=== PATIENT | male | born 1950 | race Caucasian/White ===

== ENCOUNTER 2020-06-21 06:13 | Outpatient (REF) | payer MEDICARE, SELFPAY ==
[2020-06-21 12:19] LABS: Estimated Average Glucose 143 mg/dL; Hemoglobin A1c % 6.6 %
[2020-06-21 12:27] LABS: Alanine Aminotransferase 27 U/L (0-40); Albumin Level 4.4 g/dL (3.5-5.0); Alkaline Phosphatase 92 U/L (39-117); Anion Gap 14 (12-20); Aspartate Amino Transferase 24 U/L (5-37); Bilirubin Total 0.9 mg/dL (0.0-1.0); Blood Urea Nitrogen 25 mg/dL (9-16); Calcium 10.2 mg/dL (8.4-10.2); Carbon Dioxide 28 mmol/L (22-29); Chloride 103 mmol/L (96-108); Cholesterol 215 mg/dL; Estimated Glomerular Filt Rate > 60; Glucose Fasting 138 mg/dL (60-99); HDL Cholesterol 50 mg/dL; LDL Cholesterol Calculated 149 mg/dl; Potassium 4.6 mmol/l (3.3-5.1); Sodium 140 mmol/L (135-145); Triglycerides 82 mg/dL
[2020-06-21 12:29] LABS: Prostate Specific Antigen Scr 0.56 ng/mL (<0.05-4.0)
== END 2020-06-21 06:14 | disposition home or self-care (01) ==
LOC: HO.HMGCLDS 06:13
PROVIDERS: PCP Physician Assistant; Visit Provider Physician Assistant
DX: Z12.5 Encounter for screening for malignant neoplasm of prostate (principal); I10 Essential (primary) hypertension; R73.09 Other abnormal glucose; E78.00 Pure hypercholesterolemia, unspecified
CPT/HCPCS: 80053; 80061; 83036; 84153

== ENCOUNTER 2020-12-14 08:17 | Outpatient (REF) | payer MEDICARE, SELFPAY ==
[2020-12-14 11:47] LABS: Estimated Average Glucose 148 mg/dL; Hemoglobin A1c % 6.8 %
[2020-12-14 11:59] LABS: Alanine Aminotransferase 27 U/L (0-40); Albumin Level 4.4 g/dL (3.5-5.0); Alkaline Phosphatase 89 U/L (39-117); Anion Gap 11 (12-20); Aspartate Amino Transferase 21 U/L (5-37); Blood Urea Nitrogen 21 mg/dL (9-16); Calcium 10.6 mg/dL (8.4-10.2); Carbon Dioxide 29 mmol/L (22-29); Chloride 103 mmol/L (96-108); Cholesterol 226 mg/dL; Estimated Glomerular Filt Rate > 60; Glucose Fasting 135 mg/dL (60-99); HDL Cholesterol 49 mg/dL; LDL Cholesterol Calculated 156 mg/dl; Potassium 4.4 mmol/L (3.3-5.1); Sodium 139 mmol/L (135-145); Total Protein 6.8 g/dL (6.5-8.0); Triglycerides 109 mg/dL
[2020-12-14 12:06] LABS: TSH reflex Free T4 1.13 uIU/mL (0.32-4.0)
[2020-12-14 12:20] LABS: Creatinine Urine 168.65 mg/dL; Microalbum/Creatinine Ratio Ur 10.6 ug/mg cr
== END 2020-12-14 08:18 | disposition home or self-care (01) ==
LOC: HO.HMGCLDS 08:17
PROVIDERS: PCP Physician Assistant; Visit Provider Physician Assistant
DX: I10 Essential (primary) hypertension (principal); E78.2 Mixed hyperlipidemia; E11.9 Type 2 diabetes mellitus without complications
CPT/HCPCS: 36415; 80053; 80061; 82043; 83036; 84443

== ENCOUNTER 2021-06-15 07:39 | Outpatient (REF) | payer MEDICARE, SELFPAY ==
[2021-06-15 11:25] LABS: Urine Cytology See Pathology rpt
[2021-06-15 11:33] LABS: Appearance Urine CLEAR; Color Urine YELLOW; Glucose Urine UA NEG (NEG); Leukocyte Esterase Urine NEG (NEG); Nitrite Urine NEG (NEG); Specific Gravity - Urine >= 1.030 (1.005-1.025); Urine Blood NEG (NEG); Urine Ketones NEG (NEG); Urine Protein NEG (NEG-TRACE)
[2021-06-15 11:43] LABS: Hematocrit 45.5 % (42.0-52.0); Mean Corpuscular Hemoglobin 31.4 pg (27.0-33.0); Mean Corpuscular Volume 95.2 fL (80.0-98.0); Mean Platelet Volume 9.8 fL (9.4-12.4); Platelet Count 202 X10*3/uL (160-400); Red Blood Count 4.78 X10*6/uL (4.60-5.80); Red Cell Distribution Width 12.4 % (11.0-16.0); White Blood Count 5.6 X10*3/uL (4.8-10.8)
[2021-06-15 12:20] LABS: Alanine Aminotransferase 32 U/L (0-40); Albumin Level 4.4 g/dL (3.5-5.0); Alkaline Phosphatase 104 U/L (39-117); Anion Gap 10 (12-20); Aspartate Amino Transferase 21 U/L (5-37); Bilirubin Total 1.1 mg/dL (0.0-1.0); Blood Urea Nitrogen 22 mg/dL (9-16); Calcium 10.6 mg/dL (8.4-10.2); Carbon Dioxide 29 mmol/L (22-29); Chloride 104 mmol/L (96-108); Cholesterol 141 mg/dL; Estimated Glomerular Filt Rate > 60; Glucose Fasting 176 mg/dL (60-99); HDL Cholesterol 43 mg/dL; LDL Cholesterol Calculated 83 mg/dl; Potassium 4.8 mmol/L (3.3-5.1); Sodium 138 mmol/L (135-145); Total Protein 6.8 g/dL (6.5-8.0); Triglycerides 79 mg/dL
[2021-06-15 12:28] LABS: Prostate Specific Antigen Scr 0.55 ng/mL (<0.05-4.0); TSH reflex Free T4 1.49 uIU/mL (0.32-4.0)
== END 2021-06-15 07:40 | disposition home or self-care (01) ==
LOC: HO.HMGCLDS 07:39
PROVIDERS: PCP Physician Assistant; Visit Provider Physician Assistant
DX: I10 Essential (primary) hypertension (principal); E78.2 Mixed hyperlipidemia; R36.1 Hematospermia; R30.0 Dysuria; Z12.5 Encounter for screening for malignant neoplasm of prostate
CPT/HCPCS: 36415; 80053; 80061; 81003; 84153; 84443; 85027; 88112

== ENCOUNTER 2021-12-14 08:30 | Outpatient (REF) | payer MEDICARE, SELFPAY ==
[2021-12-14 11:29] LABS: Hematocrit 43.5 % (42.0-52.0); Hemoglobin 14.6 g/dl (14.0-18.0); Mean Corpuscular HGB Conc 33.6 g/dl (31.0-36.0); Mean Corpuscular Hemoglobin 31.7 pg (27.0-33.0); Mean Corpuscular Volume 94.6 fL (80.0-98.0); Mean Platelet Volume 9.8 fL (9.4-12.4); Platelet Count 206 X10*3/uL (160-400); Red Cell Distribution Width 12.7 % (11.0-16.0); White Blood Count 5.7 X10*3/uL (4.8-10.8)
[2021-12-14 11:35] LABS: Estimated Average Glucose 174 mg/dL; Hemoglobin A1c % 7.7 %
[2021-12-14 11:36] LABS: Alanine Aminotransferase 25 U/L (0-40); Albumin Level 4.2 g/dL (3.5-5.0); Alkaline Phosphatase 103 U/L (39-117); Anion Gap 12 (12-20); Aspartate Amino Transferase 21 U/L (5-37); Blood Urea Nitrogen 19 mg/dL (9-16); Calcium 10.3 mg/dL (8.4-10.2); Carbon Dioxide 26 mmol/L (22-29); Chloride 106 mmol/L (96-108); Cholesterol 138 mg/dL; Estimated Glomerular Filt Rate > 60; Glucose Fasting 160 mg/dL (60-99); HDL Cholesterol 42 mg/dL; LDL Cholesterol Calculated 83 mg/dl; Sodium 140 mmol/L (135-145); Total Protein 6.9 g/dL (6.5-8.0); Triglycerides 68 mg/dL
[2021-12-14 11:45] LABS: Microalbum/Creatinine Ratio Ur 7.8 ug/mg cr
[2021-12-14 12:00] LABS: TSH reflex Free T4 1.55 uIU/mL (0.32-4.0)
== END 2021-12-14 08:31 | disposition home or self-care (01) ==
LOC: HO.HMGCLDS 08:30
PROVIDERS: PCP Physician Assistant; Visit Provider Physician Assistant
DX: I10 Essential (primary) hypertension (principal); E11.9 Type 2 diabetes mellitus without complications
CPT/HCPCS: 36415; 80053; 80061; 82043; 83036; 84443; 85027

== ENCOUNTER 2022-06-13 07:28 | Outpatient (REF) | payer MEDICARE, SELFPAY ==
[2022-06-13 12:03] LABS: Estimated Average Glucose 157 mg/dL; Hemoglobin A1c % 7.1 %
[2022-06-13 12:34] LABS: Creatinine Urine 99.75 mg/dL
[2022-06-13 12:45] LABS: Alanine Aminotransferase 28 U/L (0-40); Albumin Level 4.5 g/dL (3.5-5.0); Alkaline Phosphatase 101 U/L (39-117); Anion Gap 14 (12-20); Aspartate Amino Transferase 23 U/L (5-37); Bilirubin Total 1.1 mg/dL (0.0-1.0); Blood Urea Nitrogen 19 mg/dL (9-16); Calcium 10.8 mg/dL (8.4-10.2); Carbon Dioxide 29 mmol/L (22-29); Chloride 102 mmol/L (96-108); Cholesterol 167 mg/dL; Estimated Glomerular Filt Rate > 60; Glucose Fasting 145 mg/dL (60-99); HDL Cholesterol 57 mg/dL; LDL Cholesterol Calculated 98 mg/dl; Potassium 4.8 mmol/L (3.3-5.1); Sodium 140 mmol/L (135-145); Triglycerides 61 mg/dL
[2022-06-13 13:19] LABS: Prostate Specific Antigen Scr 0.54 ng/mL (<0.05-4.0); TSH reflex Free T4 1.96 uIU/mL (0.32-4.0)
== END 2022-06-13 07:29 | disposition home or self-care (01) ==
LOC: HO.CHCLDS 07:28
PROVIDERS: PCP Physician Assistant; Visit Provider Physician Assistant
DX: Z12.5 Encounter for screening for malignant neoplasm of prostate (principal); E11.9 Type 2 diabetes mellitus without complications; I10 Essential (primary) hypertension; E66.09 Other obesity due to excess calories; Z68.33 Body mass index [BMI] 33.0-33.9, adult
CPT/HCPCS: 36415; 80053; 80061; 82043; 83036; 84153; 84443

== ENCOUNTER 2022-06-21 09:26 | Outpatient (REF) | payer MEDICARE, SELFPAY ==
[2022-06-21 12:16] LABS: Vitamin D 25-OH Total 31.1 ng/mL (>30)
== END 2022-06-21 09:27 | disposition home or self-care (01) ==
LOC: HO.HMGCLDS 09:26
PROVIDERS: PCP Physician Assistant; Visit Provider Physician Assistant
DX: E83.52 Hypercalcemia (principal)
CPT/HCPCS: 36415; 82306

== ENCOUNTER 2022-12-21 07:40 | Outpatient (REF) | payer MEDICARE, SELFPAY ==
[2022-12-21 11:47] LABS: Hematocrit 43.6 % (42.0-52.0); Hemoglobin 14.3 g/dl (14.0-18.0); Mean Corpuscular HGB Conc 32.8 g/dl (31.0-36.0); Mean Corpuscular Hemoglobin 31.8 pg (27.0-33.0); Mean Corpuscular Volume 96.9 fL (80.0-98.0); Mean Platelet Volume 9.8 fL (9.4-12.4); Platelet Count 226 X10*3/uL (160-400); Red Cell Distribution Width 12.9 % (11.0-16.0); White Blood Count 4.9 X10*3/uL (4.8-10.8)
[2022-12-21 12:17] LABS: Alanine Aminotransferase 30 U/L (0-40); Albumin Level 4.3 g/dL (3.5-5.0); Alkaline Phosphatase 105 U/L (39-117); Anion Gap 10 (12-20); Aspartate Amino Transferase 22 U/L (5-37); Bilirubin Total 1.3 mg/dL (0.0-1.0); Blood Urea Nitrogen 18 mg/dL (9-16); Calcium 10.8 mg/dL (8.4-10.2); Carbon Dioxide 29 mmol/L (22-29); Chloride 105 mmol/L (96-108); Cholesterol 153 mg/dL; Estimated Glomerular Filt Rate > 60; Glucose Fasting 161 mg/dL (60-99); HDL Cholesterol 50 mg/dL; LDL Cholesterol Calculated 88 mg/dl; Potassium 4.9 mmol/L (3.3-5.1); Sodium 139 mmol/L (135-145); TSH reflex Free T4 1.26 uIU/mL (0.32-4.0); Total Protein 6.6 g/dL (6.5-8.0); Triglycerides 76 mg/dL
[2022-12-21 12:20] LABS: Estimated Average Glucose 160 mg/dL; Hemoglobin A1c % 7.2 %
[2022-12-22 15:39] LABS: PTHI 48 pg/mL (16-77)
== END 2022-12-21 07:41 | disposition home or self-care (01) ==
LOC: HO.HMGCLDS 07:40
PROVIDERS: PCP Physician Assistant; Visit Provider Physician Assistant
DX: E66.09 Other obesity due to excess calories (principal); E78.2 Mixed hyperlipidemia; E11.65 Type 2 diabetes mellitus with hyperglycemia; E83.52 Hypercalcemia; Z68.33 Body mass index [BMI] 33.0-33.9, adult
CPT/HCPCS: 36415; 80053; 80061; 83036; 83970; 84443; 85027

== ENCOUNTER 2023-04-03 08:36 | Outpatient (AMB) | payer MEDICARE, SELFPAY ==
--- NOTE | 2023-04-03 08:42 | A.OFFPC_ITS ---
Vital Signs 04/03/23 08:43 Height 5 ft 7 in Weight 202 lb 4 oz BMI 31.7 BP 124/80 Blood Pressure Location Lt brachial Position Sitting Pulse 75 Pulse Source Pulse Oximeter Pulse Oximetry (%) 96 Oxygen Delivery Method Room Air Intake Visit Reasons: f/u DMII/ HLD / hypercalcemia Intake Note: Patient is here to follow up on DM,HLD and hypercalcemia. Longitudinal Float Operator Required: No Accompanied by: Self / Same As Patient Allergies No Known Allergies [No Known Allergies*] Allergy (Verified 04/03/23 08:49) Medication List - Last Reconciled 04/03/23 by Luke Perez PA-C aspirin 81 mg PO DAILY atorvastatin 20 mg PO DAILY lisinopril 2.5 mg PO DAILY metformin 500 mg PO BID multivitamin (Daily Multi-Vitamin tablet) 1 tab PO DAILY pioglitazone (Actos) 15 mg PO DAILY 90 days Tobacco use date assessed: 04/03/23 Fall risk assessment: No Falls in past year Last assessed Fall Risk: 04/03/23 Dental Screening Dental Screen Date: 04/03/23 Did you have a dental visit in the last 12 months?: Yes Did you have a dental problem in the last 6 months where you did not have access to dental care?: No Was dental information given to patient?: Patient has dentist HPI f/u DMII/ HLD / hypercalcemia HPI Details Patient is 72-year-old male here today fo visit.? Patient's past medical history significant for type 2 diabetes, hyperlipidemia, osteoarthritis of the knees, hypertension, obesity.. Concern-> has noted a skin lesion over his scalp over last several years. He reports no pain or itch to the skin lesion. Also reports likely having some spots of bright red blood in his stool. Of note did have colonoscopy in 2018 showing internal hemorrhoids and mild diverticulosis. He otherwise denies any constipation or rectal pain. .. Type 2 diabetes:? Has lost 8 lb since last office visit.? We have reduced his metformin dose to 500 b.i.d. due to GI side effects of higher dose.? I have added Actos 15 mg and patient has been working diligently on his diabetic diet. Today's A1c improved at 7.0 . Osteoarthritis left knee:? Patient continues to have mild amount of pain over hi s left knee, has gotten cortisone injection in left knee without much relief of his pain.? Has severe varus deformity and would like to have 2nd opinion with [place] [facility]. .. : Obesity BMI still remains above 30, have noted weight loss since last office visit. He continues to try to be more physically active an Adapta better eating habits to reduce his weight. .. Hypercalcemia :? Has been noted to have chronic hypercalcemia.? Parathyroid hormone levels normal. Has been referred to Nephrology for evaluation. Otherwise advised to stop his multivitamin.. Laboratory Tests 06/13/22 12/21/22 12/21/22 07:45 07:50 07:50 Fasting Glucose 161 H Hemoglobin A1c % 7.2 Calcium 10.8 H TSH 1.26 PTH Intact Calcium (PTH Intac t) Urine Microalbumin 8.0 12/21/22 07:50 Fasting Glucose Hemoglobin A1c % Calcium TSH PTH Intact 48 Calcium (PTH Intac t) 11.0 H Urine Microalbumin PFSH Surgical History History of cholecystectomy History of colonoscopy History of knee surgery Family History Father No problems noted. Mother Esophageal cancer Social History Housing: House Alcohol intake: never Patient Tobacco Use Status: Never used Tobacco Tobacco use type: Cigarette e-Cigarette/Vaping Use: Never Used Second Hand Smoke Exposure: No service: No Current occupational status: retired Cognitive needs: No Hearing needs: No Vision needs: No Questionnaire Thrive Questionnaire Date Thrive assessed: 12/22/22 KOKO-7 AMB Questionnaire KOKO-7 Date KOKO - 7 assessed: 12/22/22 Source: Developed by Drs. Williams Nagel, Abby Garcia, Osiel Ash and colleagues, with an educational yamil from [employer]. Review of Systems Const Denies headache(s) Eyes Denies loss of vision ENT Denies vertigo, Denies dizziness, Denies headache(s) and Denies sore throat Card Denies chest pain, Denies leg edema and Denies lightheadedness Resp Denies cough, Denies hemoptysis and Denies wheezing GI Denies abdominal pain, Denies melena, Denies constipation, Denies diarrhea and Denies vomiting Denies dysuria, Denies urinary frequency and Denies urinary urgency Musc Denies arthralgias, Denies joint swelling, Denies numbness and Denies tingling Neuro Denies Abnormal speech present, Denies behavioral changes, Denies vertigo, Denies dizziness, Denies headache(s), Denies loss of vision, Denies memory loss, Denies numbness and Denies tingling Psych Denies anxiety, Denies behavioral changes, Denies depression, Denies memory loss and Denies panic attacks Ron/Lymph Denies easy bleeding and Denies easy bruising Aller/Immun Denies wheezing Physical exam (Primary Care) Vital Signs: Last Vital Signs Pulse 75 04/03/23 08:43 BP 124/80 04/03/23 08:43 Pulse Ox 96 04/03/23 08:43 Oxygen Delivery Method Room Air 04/03/23 08:43 BMI result Body Mass Index 31.7 BMI Assessment/Plan discussion: High Tobacco/Smoking Status: Tobacco use Status Tobacco use date assessed 04/03/23 04/03/23 08:51 Patient Tobacco Use Status Never used Tobacco 04/03/23 08:44 Tobacco use type Cigarette 04/03/23 08:44 e-Cigarette/Vaping Use Never Used 04/03/23 08:44 Thrive Assessment: Date of Thrive Assessment Date Thrive assessed 12/22/22 04/03/23 08:44 Const General: healthy appearing, no acute distress, alert and awake Nutritional Appearance: well nourished Orientation/consciousness: oriented to person, oriented to place and oriented to time [facility] Head images: 1. CIRCULAR ROUGH TEXTURED RAISED LESION OVER RIGHT UPPER FOREHEAD. Ears: TM's normal bilaterally General nose exam: Normal nasal mucous membranes and turbinates present Eyes Conjunctivae: conjunctivae normal Sclerae: sclerae normal Pupils: Equal, round and reactive pupils present Neck Neck: Yes no lymphadenopathy and Yes no JVD Thyroid: Thyroid normal Carotids: no bruits Resp Effort & Inspection: normal respiratory effort and not tachypneic Auscultation: no crackles, no rales, no rhonchi and no wheezes Cardio Rate: regular rate Rhythm: regular rhythm Heart sounds: no murmurs and normal S1 and S2 GI Palpation (GI): Soft to palpation, nontender, no hepatomegaly and no splenomegaly Auscultation: normal bowel sounds Skin General skin exam: no rashes or lesions noted and dry skin Neuro General: oriented to person, oriented to place and oriented to time Cranial nerves: Yes Equal, round and reactive pupils present Speech: No Abnormal speech present Gait exam (Neuro): Normal gait present Motor exam (neuro): no tremor noted Extrem Right upper extremity: full ROM Left upper extremity: full ROM Right lower extremity: full ROM; no edema Left lower extremity: full ROM; no edema Psych Mental Status: mental status grossly normal Speech and movement: Normal speech and movement present Affect: normal affect Attitude: cooperative Thought process: Normal thought process present Results AMB Hemoglobin A1c AMB Hemoglobin A1c 7.0 % Last Edit by MARIE Parr on 04/03/23 08:57 Results Reviewed Results Reviewed: Laboratory Last Values Hgb A1c (Clinic) 7.0 % (4.0-6.0) H 04/03/23 08:51 Assessment and Plan Assessment & Plan (1) DMII (diabetes mellitus, type 2): Code(s): E11.9 - Type 2 diabetes mellitus without complications Qualifiers: Diabetes mellitus complication status: with hyperglycemia Diabetes mellitus care home insulin use: without care home use Qualified Code(s): E11.65 - Type 2 diabetes mellitus with hyperglycemia Plan: Patient's type 2 diabetes well controlled with current dose of anti- hyperglycemic medication. Goal A1c is to remain 0.0 below. (2) HTN (hypertension): Code(s): I10 - Essential (primary) hypertension Qualifiers: Hypertension type: essential hypertension Qualified Code(s): I10 - Essential (primary) hypertension Plan: Patient's blood pressure acceptable today in office. Will continue his current dose of lisinopril with goal blood pressure to remain below 140/90 (3) HLD (hyperlipidemia): Code(s): E78.5 - Hyperlipidemia, unspecified Qualifiers: Hyperlipidemia type: mixed hyperlipidemia Qualified Code(s): E78.2 - Mixed hyperlipidemia Plan: Patient's most recent fasting lipid panel showing appropriate total cholesterol and LDL. Continues on statin therapy without any side effect. Goal LDL to remain below 100 (4) Obese: Code(s): E66.9 - Obesity, unspecified Qualifiers: Body mass index: BMI 31.0-31.9 Obesity classification: adult class 1 (BMI 30 - 34.9) Obesity type: due to excess calories Serious obesity comorbidity presence: without serious comorbidity Qualified Code(s): E66.09 - Other obesity due to excess calories; Z68.31 - Body mass index [BMI] 31.0-31.9, adult Plan: Patient does understand his BMI is over 30 and will continue working on lif estyle modifications to reduce his weight. (5) Hypercalcemia: Code(s): E83.52 - Hypercalcemia Plan: Continues to have mild hypercalcemia. Has been referred to Nephrology for evaluation. Parathyroid normal. He otherwise is asymptomatic without prior history of abdominal pains or nephrolithiasis. (6) Actinic keratosis of scalp: Code(s): L57.0 - Actinic keratosis Plan: Will supply patient with topical treatment for presumed actinic keratosis, if treatment fails will consider dermatology evaluation on biopsy. Orders: Orders Lipid Panel Today E78.2 - Mixed hyperlipidemia Comprehensive [place]. Panel Fast Today E11.65 - Type 2 diabetes mellitus with hyperglycemia Prostate Specific Antigen Scr Today E11.65 - Type 2 diabetes mellitus with hyperglycemia, Z12.5 - Encounter for screening for malignant neoplasm of prostate Microalbumin, Random (w Creat) Today I10 - Essential (primary) hypertension Complete Blood Count no Diff Today E83.52 - Hypercalcemia AMB Hemoglobin A1c Today E11.9 - Type 2 diabetes mellitus without complications Medications: New imiquimod 5% 1 appl topical 2XW 16 weeks 24 ea 0RF L57.0 - Actinic keratosis Changed From metformin 500 mg PO BID 180 tabs 1RF E11.65 - Type 2 diabetes mellitus with hyperglycemia To metformin 500 mg PO BID 90 days 180 tabs 2RF E11.65 - Type 2 diabetes mellitus with hyperglycemia Refilled lisinopril 2.5 mg PO DAILY 90 tabs 2RF I10 - Essential (primary) hypertension Coding Level of Care Code Est Pt Level 4 (77201) Diagnoses DMII (diabetes mellitus, type 2) E11.65 Diabetes mellitus complication status: with hyperglycemia Diabetes mellitus terminal operations supervisor insulin use: without care home use HTN (hypertension) I10 Hypertension type: essential hypertension HLD (hyperlipidemia) E78.2 Hyperlipidemia type: mixed hyperlipidemia Obese E66.09; Z68.31 Body mass index: BMI 31.0-31.9 Obesity classification: adult class 1 (BMI 30 - 34.9) Obesity type: due to excess calories Serious obesity comorbidity presence: without serious comorbidity Hypercalcemia E83.52 Actinic keratosis of scalp L57.0
[2023-04-03 08:43] VITALS: BP 124/80; PULSE 75; O2SAT 96; BMI 31.7
== END 2023-04-03 09:13 | disposition home or self-care (01) ==
PROVIDERS: Visit Provider Physician Assistant
DX: E11.65 Type 2 diabetes mellitus with hyperglycemia (principal); I10 Essential (primary) hypertension; E66.09 Other obesity due to excess calories; Z68.31 Body mass index [BMI] 31.0-31.9, adult; E83.52 Hypercalcemia; E78.2 Mixed hyperlipidemia; L57.0 Actinic keratosis
CPT/HCPCS: 83036; 99214

== ENCOUNTER 2023-09-27 08:35 | Outpatient (REF) | payer MEDICARE, SELFPAY ==
[2023-09-27 11:47] LABS: Hematocrit 45.3 % (42.0-52.0); Hemoglobin 14.9 g/dl (14.0-18.0); Mean Corpuscular HGB Conc 32.9 g/dl (31.0-36.0); Mean Corpuscular Hemoglobin 31.4 pg (27.0-33.0); Mean Corpuscular Volume 95.6 fL (80.0-98.0); Mean Platelet Volume 9.8 fL (9.4-12.4); Platelet Count 204 X10*3/uL (160-400); Red Blood Count 4.74 X10*6/uL (4.60-5.80); Red Cell Distribution Width 13.3 % (11.0-16.0)
[2023-09-27 12:02] LABS: Alanine Aminotransferase 23 U/L (0-40); Albumin Level 4.4 g/dL (3.5-5.0); Alkaline Phosphatase 96 U/L (39-117); Anion Gap 12 (12-20); Aspartate Amino Transferase 20 U/L (5-37); Bilirubin Total 0.5 mg/dL (0.0-1.0); Blood Urea Nitrogen 21 mg/dL (9-16); Calcium 10.8 mg/dL (8.4-10.2); Carbon Dioxide 28 mmol/L (22-29); Chloride 108 mmol/L (96-108); Cholesterol 153 mg/dL (<200); Estimated Glomerular Filt Rate > 60; Glucose Fasting 147 mg/dL (60-99); HDL Cholesterol 52 mg/dL (>40); LDL Cholesterol Calculated 88 mg/dL (<100); Sodium 143 mmol/L (135-145); Total Protein 7.2 g/dL (6.5-8.0); Triglycerides 67 mg/dL (<150)
[2023-09-27 12:18] LABS: Creatinine Urine 175.28 mg/dL; Microalbum/Creatinine Ratio Ur 14.8 ug/mg cr (<30)
[2023-09-27 12:19] LABS: Prostate Specific Antigen Scr 0.84 ng/mL (<0.05-4.0)
== END 2023-09-27 08:36 | disposition home or self-care (01) ==
LOC: HO.HMGCLDS 08:35
PROVIDERS: PCP Physician Assistant; Visit Provider Physician Assistant
DX: Z12.5 Encounter for screening for malignant neoplasm of prostate (principal); E11.65 Type 2 diabetes mellitus with hyperglycemia; I10 Essential (primary) hypertension; E83.52 Hypercalcemia; E78.2 Mixed hyperlipidemia
CPT/HCPCS: 36415; 80053; 80061; 82043; 82570; 84153; 85027

== ENCOUNTER 2023-10-04 08:10 | Outpatient (AMB) | payer MEDICARE, SELFPAY ==
[2023-10-04 08:33] VITALS: BP 120/78; PULSE 65; O2SAT 99; BMI 33.7
--- NOTE | 2023-10-04 08:33 | A.OFFPC_ITS ---
Vital Signs 10/04/23 08:33 Height 5 ft 7 in Weight 215 lb BMI 33.7 BP 120/78 Blood Pressure Location Lt brachial Position Sitting Pulse 65 Pulse Source Pulse Oximeter Pulse Oximetry (%) 99 Oxygen Delivery Method Room Air Intake Visit Reasons: 6mth f/u Waterproofing Supervisor Required: No Coach Wirer: Not Required per policy Accompanied by: Self / Same As Patient Allergies No Known Allergies [No Known Allergies*] Allergy (Verified 10/04/23 08:47) Medication List - Last Reconciled 10/04/23 by Luke Perez PA-C atorvastatin 20 mg PO DAILY lisinopril 2.5 mg PO DAILY metformin 500 mg PO BID 90 days pioglitazone (Actos) 15 mg PO DAILY 90 days Tobacco use date assessed: 10/04/23 Fall risk assessment: No Falls in past year Last assessed Fall Risk: 10/04/23 Dental Screening Dental Screen Date: 10/04/23 Did you have a dental visit in the last 12 months?: Yes Did you have a dental problem in the last 6 months where you did not have access to dental care?: No Was dental information given to patient?: Patient has dentist HPI 6mth f/u HPI Details Patient is 73-year-old male here today for visit.? Patient's past medical history significant for type 2 diabetes, hyperlipidemia, osteoarthritis of the knees, hypertension, obesity.. .. Type 2 diabetes:??Patient continues on metformin 500 b.i.d. and Actos 15 mg. A1c elevated at 7.6 from 7.0. He does report dietary indiscretion and weight gain since last office visit. . Osteoarthritis left knee:? Patient continues to have mild amount of pain over his left knee, has gotten cortisone injection in left knee without much relief of his pain.? Has severe varus deformity and is interested in seeing orthopedic surgeon again .. : Obesity BMI still remains above 30, have noted weight gain since last office visit. He continues to try to be more physically active an Adapta better eating habits to reduce his weight. .. Hyperparathyroidism: Has seen sports centre manager whom will follow. Has gotten bone density and upper abdominal scan without any evidence of nephrolithiasis. Will be seeing endocrine surgeon for possible parathyroidectomy [facility] Surgical History History of colonoscopy History of knee surgery History of cholecystectomy Family History Father No problems noted. Mother Esophageal cancer Social History Housing: House Alcohol intake: never Patient Tobacco Use Status: Never used Tobacco Tobacco use type: Cigarette e-Cigarette/Vaping Use: Never Used Second Hand Smoke Exposure: No service: No Current occupational status: retired Cognitive needs: No Hearing needs: No Vision needs: Yes Questionnaire PHQ-9 Over the last 2 weeks, how often have you been bothered by any of the following problems? 1. Little interest or pleasure in doing things: not at all 2. Feeling down, depressed, or hopeless: not at all 3. Trouble falling or staying asleep, or sleeping too much: not at all 4. Feeling tired or having little energy: not at all 5. Poor appetite or overeating: not at all 6. Feeling bad about yourself - or that you are a failure or have let yourself or your family down: not at all 7. Trouble concentrating on things, such as reading the newspaper or watching television: not at all 8. Moving or speaking so slowly that other people could have noticed. Or the opposite - being so fidgety or restless that you have been moving around a lot more than usual: not at all 9. Thoughts that you would be better off or of hurting yourself in some way: not at all Total score: 0 Depression Screening Interpretation: Negative Depression Screening Done: Yes 67425 - PHQ-9 Billing: Yes Source: Developed by Drs. Williams Nagel, Abby Garcia, Osiel Ash and colleagues, with an educational yamil from [employer]. Thrive Questionnaire Date Thrive assessed: 10/04/23 I am a: Patient What is your living situation today?: I have a steady place to live Within the past 12 months, did the food you bought not last and you didn't have the money to get more?: Never true Within the past 12 months, did you worry whether your food would run out before you got money to buy more?: Never true Do you have trouble paying for medicines?: No Do you have trouble getting transportation to medical appointments?: No Do you have trouble paying your heating and electricity bill?: No Do you have trouble taking care of your child, family member or friend?: No Do you have trouble with day-to-day activities such as bathing, preparing meals, shopping, managing finances, etc.?: No Are you currently unemployed and looking for a job?: No Are you interested in more education?: No Please select the resources that you would like help with: None THRIVE Score: 0 AUDIT C Alcohol Use Questionnaire (AUDIT-C) 1. How often do you have a drink containing alcohol?: Never Total Score: 0 Score Reviewed/Action Taken: No KOKO-7 AMB Questionnaire KOKO-7 Date KOKO - 7 assessed: 10/04/23 Feeling nervous, anxious, or on edge: 0 = Not at all Not being able to stop or control worryin = Not at all Worrying too much about different things: 0 = Not at all Trouble relaxin = Not at all Being so restless that it is hard to sit still: 0 = Not at all Becoming easily annoyed or irritable: 0 = Not at all Feeling afraid as if something awful might happen: 0 = Not at all Total KOKO-7 score (0-4 normal; 5-9 mild; 10-14 moderate; 15-21 severe): 0 Source: Developed by Drs. Williams Nagel, Abby Garcia, Osiel Ash and colleagues, with an educational yamil from [employer]. Review of Systems Const Denies headache(s) Eyes Denies loss of vision ENT Denies vertigo, Denies dizziness, Denies headache(s) and Denies sore throat Card Denies chest pain, Denies leg edema and Denies lightheadedness Resp Denies cough, Denies hemoptysis and Denies wheezing GI Denies abdominal pain, Denies melena, Denies constipation, Denies diarrhea and Denies vomiting Denies dysuria, Denies urinary frequency and Denies urinary urgency Musc Denies arthralgias, Denies joint swelling, Denies numbness and Denies tingling Neuro Denies Abnormal speech present, Denies behavioral changes, Denies vertigo, Denies dizziness, Denies headache(s), Denies loss of vision, Denies memory loss, Denies numbness and Denies tingling Psych Denies anxiety, Denies behavioral changes, Denies depression, Denies memory loss and Denies panic attacks Ron/Lymph Denies easy bleeding and Denies easy bruising Aller/Immun Denies wheezing Physical exam (Primary Care) Vital Signs: Last Vital Signs Pulse 65 10/04/23 08:33 BP 120/78 10/04/23 08:33 Pulse Ox 99 10/04/23 08:33 Oxygen Delivery Method Room Air 10/04/23 08:33 BMI result Body Mass Index 33.7 Tobacco/Smoking Status: Tobacco use Status Tobacco use date assessed 10/04/23 10/04/23 08:35 Patient Tobacco Use Status Never used Tobacco 10/04/23 08:35 Tobacco use type Cigarette 10/04/23 08:35 e-Cigarette/Vaping Use Never Used 10/04/23 08:35 PHQ-9: PHQ-9 Score PHQ-9: Total score 0 10/04/23 08:46 Depression Screening Interpretation: Negative Thrive Assessment: Date of Thrive Assessment Date Thrive assessed 10/04/23 10/04/23 08:35 Const General: healthy appearing, no acute distress, alert and awake Nutritional Appearance: well nourished Orientation/consciousness: oriented to person, oriented to place and oriented to time HENMT Ears: TM's normal bilaterally General nose exam: Normal nasal mucous membranes and turbinates present Eyes Conjunctivae: conjunctivae normal Sclerae: sclerae normal Pupils: Equal, round and reactive pupils present Neck Neck: Yes no lymphadenopathy and Yes no JVD Thyroid: Thyroid normal Carotids: no bruits Resp Effort & Inspection: normal respiratory effort and not tachypneic Auscultation: no crackles, no rales, no rhonchi and no wheezes Cardio Rate: regular rate Rhythm: regular rhythm Heart sounds: no murmurs and normal S1 and S2 GI Palpation (GI): Soft to palpation, nontender, no hepatomegaly and no splenomegaly Auscultation: normal bowel sounds Skin General skin exam: no rashes or lesions noted and dry skin Neuro General: oriented to person, oriented to place and oriented to time Cranial nerves: Yes Equal, round and reactive pupils present Speech: No Abnormal speech present Gait exam (Neuro): Normal gait present Motor exam (neuro): no tremor noted Extrem Right upper extremity: full ROM Left upper extremity: full ROM Right lower extremity: full ROM; no edema Left lower extremity: full ROM; no edema Psych Mental Status: mental status grossly normal Speech and movement: Normal speech and movement present Affect: normal affect Attitude: cooperative Thought process: Normal thought process present Results AMB Hemoglobin A1c AMB Hemoglobin A1c 7.6 % Last Edit by SEA Taveras on 10/04/23 08:47 Results Reviewed Results Reviewed: Laboratory Last Values Hgb A1c (Clinic) 7.6 % (4.0-6.0) H 10/04/23 08:35 Assessment and Plan Assessment & Plan (1) DMII (diabetes mellitus, type 2): Code(s): E11.9 - Type 2 diabetes mellitus without complications Qualifiers: Diabetes mellitus complication status: with hyperglycemia Diabetes mellitus half-way insulin use: without half-way use Qualified Code(s): E11.65 - Type 2 diabetes mellitus with hyperglycemia Plan: Patient's type 2 diabetes suboptimally controlled with A1c today is 7.6. Continues on metformin 500 b.i.d.. Was unable to tolerate high doses of metformin due to GI side effects. Continues on pioglitazone 15 mg daily. Will higher dose though would like to work on dietary and lifestyle modifications. (2) Hyperparathyroidism: Code(s): E21.3 - Hyperparathyroidism, unspecified Plan: Was found to have hyperparathyroidism. Calcium has been slightly elevated for many years now. He otherwise is asymptomatic without any GI issues, nephrolithi asis. Will be speaking with a endocrine surgeon about a parathyroidectomy (3) HTN (hypertension): Code(s): I10 - Essential (primary) hypertension Qualifiers: Hypertension type: essential hypertension Qualified Code(s): I10 - Essential (primary) hypertension Plan: Patient's blood pressure acceptable today in office. Will continue his current dose of lisinopril with goal blood pressure to remain below 140/90 (4) HLD (hyperlipidemia): Code(s): E78.5 - Hyperlipidemia, unspecified Qualifiers: Hyperlipidemia type: mixed hyperlipidemia Qualified Code(s): E78.2 - Mixed hyperlipidemia Plan: Patient's most recent fasting lipid panel showing appropriate total cholesterol and LDL. Continues on statin therapy without any side effect. Goal LDL to remain below 100 (5) Obese: Code(s): E66.9 - Obesity, unspecified Qualifiers: Obesity type: due to excess calories Obesity classification: adult class 1 (BMI 30 - 34.9) Serious obesity comorbidity presence: without serious comorbidity Body mass index: BMI 31.0-31.9 Qualified Code(s): E66.09 - Other obesity due to excess calories; Z68.31 - Body mass index [BMI] 31.0-31.9, adult Plan: Unfortunately gained a few lb since last office visit. Patient does understand his BMI is over 30 and will continue working on lifestyle modifications to reduce his weight. (6) Osteoarthritis of left knee: Code(s): M17.12 - Unilateral primary osteoarthritis, left knee Qualifiers: Osteoarthritis type: primary Qualified Code(s): M17.12 - Unilateral eliud dave osteoarthritis, left knee Plan: Has severe left knee osteoarthritis. Has gotten cortisone injections though have not been effective. Would like to speak with orthopedic surgeon again about other options. He is apprehensive on total replacement Orders: Orders AMB Hemoglobin A1c Today E11.9 - Type 2 diabetes mellitus without complications Comprehensive [place]. Panel Fast 6 Months E11.65 - Type 2 diabetes mellitus with hyperglycemia Hemoglobin A1c 6 Months E11.65 - Type 2 diabetes mellitus with hyperglycemia Lipid Panel 6 Months E78.2 - Mixed hyperlipidemia Coding Level of Care Code Est Pt Level 4 (32658) Diagnoses Type 2 diabetes mellitus with hyperglycemia, without long-term current use of insulin E11.65 Diabetes mellitus complication status: with hyperglycemia Diabetes mellitus long term acute care registered nurse insulin use: without long term acute care registered nurse use Hyperparathyroidism E21.3 Essential hypertension I10 Hypertension type: essential hypertension Mixed hyperlipidemia E78.2 Hyperlipidemia type: mixed hyperlipidemia Class 1 obesity due to excess calories without serious comorbidity with body mass index (BMI) of 31.0 to 31.9 in adult E66.09; Z68.31 Obesity type: due to excess calories Obesity classification: adult class 1 (BMI 30 - 34.9) Serious obesity comorbidity presence: without serious comorbidity Body mass index: BMI 31.0-31.9 Primary osteoarthritis of left knee M17.12 Osteoarthritis type: primary
== END 2023-10-04 09:08 | disposition home or self-care (01) ==
PROVIDERS: PCP Physician Assistant; Visit Provider Physician Assistant
DX: E11.65 Type 2 diabetes mellitus with hyperglycemia (principal); E21.3 Hyperparathyroidism, unspecified; I10 Essential (primary) hypertension; E78.2 Mixed hyperlipidemia; E66.09 Other obesity due to excess calories; Z68.31 Body mass index [BMI] 31.0-31.9, adult; M17.12 Unilateral primary osteoarthritis, left knee; E11.9 Type 2 diabetes mellitus without complications
CPT/HCPCS: 83036; 99214

== ENCOUNTER 2024-03-31 07:23 | Outpatient (REF) | payer MEDICARE, SELFPAY ==
[2024-03-31 11:20] LABS: Alanine Aminotransferase 19 U/L (0-40); Albumin Level 4.2 g/dL (3.5-5.0); Alkaline Phosphatase 88 U/L (39-117); Anion Gap 12 (12-20); Aspartate Amino Transferase 17 U/L (5-37); Bilirubin Total 0.9 mg/dL (0.0-1.0); Blood Urea Nitrogen 19 mg/dL (9-16); Calcium 10.9 mg/dL (8.4-10.2); Carbon Dioxide 27 mmol/L (22-29); Chloride 106 mmol/L (96-108); Cholesterol 145 mg/dL (<200); Estimated Glomerular Filt Rate > 60; Glucose Fasting 147 mg/dL (60-99); HDL Cholesterol 53 mg/dL (>40); LDL Cholesterol Calculated 76 mg/dL (<100); Potassium 4.9 mmol/L (3.3-5.1); Sodium 140 mmol/L (135-145); Total Protein 6.9 g/dL (6.5-8.0); Triglycerides 83 mg/dL (<150)
[2024-03-31 11:21] LABS: Estimated Average Glucose 148 mg/dL; Hemoglobin A1c % 6.8 % (<6.0)
[2024-03-31 11:22] LABS: Anion Gap 9 (12-20); Blood Urea Nitrogen 19 mg/dL (9-16); Calcium 11.1 mg/dL (8.4-10.2); Carbon Dioxide 29 mmol/L (22-29); Chloride 106 mmol/L (96-108); Estimated Glomerular Filt Rate > 60; Potassium 4.7 mmol/L (3.3-5.1); Sodium 139 mmol/L (135-145)
[2024-03-31 11:24] LABS: Vitamin D 25-OH Total 38.2 ng/mL (>30)
[2024-03-31 11:25] LABS: Parathyroid Hormone Intact 70.8 pg/mL (8.7-77.1)
== END 2024-03-31 07:24 | disposition home or self-care (01) ==
LOC: HO.HMGCLDS 07:23
PROVIDERS: PCP Physician Assistant; Referring Provider Internal Medicine Endocrinology, Diabetes & Metabolism; Visit Provider Physician Assistant
DX: E11.65 Type 2 diabetes mellitus with hyperglycemia (principal); E78.2 Mixed hyperlipidemia; E83.52 Hypercalcemia
CPT/HCPCS: 36415; 80051; 80053; 80061; 82306; 82310; 82565; 83036; 83970; 84520

== ENCOUNTER 2024-04-07 09:21 | Outpatient (AMB) | payer MEDICARE, SELFPAY ==
--- NOTE | 2024-04-07 09:26 | A.OFFPC_ITS ---
Intake Visit Reasons: ANNUAL WELLNESS Allergies No Known Allergies [No Known Allergies*] Allergy (Verified 10/04/23 08:47) Tobacco use date assessed: 10/04/23 Dental Screening Dental Screen Date: 10/04/23 [facility] Surgical History History of colonoscopy History of knee surgery History of cholecystectomy Family History Father No problems noted. Mother Esophageal cancer Social History Housing: House Alcohol intake: never Patient Tobacco Use Status: Never used Tobacco Tobacco use type: Cigarette e-Cigarette/Vaping Use: Never Used Second Hand Smoke Exposure: No service: No Current occupational status: retired Cognitive needs: No Hearing needs: No Vision needs: Yes Questionnaire Thrive Questionnaire Date Thrive assessed: 10/04/23 KOKO-7 AMB Questionnaire KOKO-7 Date KOKO - 7 assessed: 10/04/23 Source: Developed by Drs. Williams Nagel, Abby Garcia, Osiel Ash and colleagues, with an educational yamil from [employer]. Physical exam (Primary Care) Tobacco/Smoking Status: Tobacco use Status Tobacco use date assessed 10/04/23 10/04/23 08:35 Patient Tobacco Use Status Never used Tobacco 10/04/23 08:35 Tobacco use type Cigarette 10/04/23 08:35 e-Cigarette/Vaping Use Never Used 10/04/23 08:35 Thrive Assessment: Date of Thrive Assessment Date Thrive assessed 10/04/23 10/04/23 08:35 Coding
[2024-04-07 09:32] VITALS: BP 136/86; PULSE 68; O2SAT 98; BMI 32.3
--- NOTE | 2024-04-07 09:35 | AM.OFFVISMDC ---
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 Patient's past medical history significant for type 2 diabetes, hyperlipidemia, osteoarthritis of the knees, hypertension, obesity.. Today we discussed [place] [facility] of care and patient does have [facility] on file We also did discuss his comprehensive care plan and will be scanned into documents Vaccine: Up-to-date with COVID vaccine, pneumonia vaccine, shingles vaccine Colorectal cancer screening- done in 2018 repeat 10 years up-to-date with colonoscopy Laboratory Tests 12/21/22 09/27/23 10/04/23 07:50 08:38 08:35 RBC 4.74 Hgb 14.9 Creatinine 0.83 Fasting Glucose 161 H 147 H Hgb A1c (Clinic) 7.6 H Hemoglobin A1c % Calcium 10.8 H Cholesterol 153 LDL Cholesterol, C alc 88 PSA Screen 0.84 25-OH Vitamin D To luz Urine Microalbumin 26.0 03/31/24 07:34 RBC Hgb Creatinine 0.90 Fasting Glucose Hgb A1c (Clinic) Hemoglobin A1c % 6.8 H Calcium Cholesterol 145 LDL Cholesterol, C alc PSA Screen 25-OH Vitamin D To luz 38.2 Urine Microalbumin HPI Comments History of Present Illness Details reviewed past medical history- yes reviewed surgical / hospitalization history- yes reviewed current medications- yes reviewed family history- yes home safety throw rugs? grab bars? raised toilet seat? working smoke detectors? activities of daily living difficulty bathing or showering? difficulty dressing? difficulty using the toilet? difficulty getting in and out of bed? difficulty walking? receives help from other person's with any of the above tasks? instrumental activities of daily living uses telephone - gets to place out of walking distance- go shopping for groceries- repairs own meals- does own minor home maintenance- does own laundry- does own housework- manages own money- currently takes medication- end of life planning discussed advanced directives- yes advanced directives on file? discussed wishes expressed in advanced directives. fall risk have you had any falls with injuries in the past year? have you had 2 or more falls in the past year? fall risk assessment: [facility] Surgical History History of colonoscopy History of knee surgery History of cholecystectomy Family History Father No problems noted. Mother Esophageal cancer Social History Housing: House Alcohol intake: never Patient Tobacco Use Status: Never used Tobacco Tobacco use type: Cigarette e-Cigarette/Vaping Use: Never Used Second Hand Smoke Exposure: No service: No Current occupational status: retired Cognitive needs: No Hearing needs: No Vision needs: Yes Questionnaire Medicare Wellness Checkup [age] What gender do you identify with?: male During the past 4 weeks, how much have you been bothered by emotional problems such as feeling anxious, depressed, irritable, sad or downhearted, and blue?: not at all During the past 4 weeks, has your physical & emotional health limited your social activities with family, friends, neighbors, or groups?: not at all During the past 4 weeks, how much bodily pain have you generally had?: very mild pain During the past 4 weeks, was someone available to help you if you needed & wanted help?: yes, as much as I wanted During the past 4 weeks, what was the hardest physical activity you could do for at least 2 minutes?: heavy Can you get to places out of walking distance without help? (For eg., can you travel alone on buses, taxis or drive your car?): Yes Can you go shopping for groceries or clothes without someone's help?: Yes Can you prepare your own meals?: Yes Can you do your housework without help?: Yes Because of any health problems, do you need the help of another person with your personal care needs such as eating, bathing, dressing or getting around the house?: No Can you handle your own money without help?: Yes During the past 4 weeks, how would you rate your health in general?: very good During the past 4 weeks how have things been going for you?: pretty well Are you having difficulties driving your car?: no Do you always fasten your seat belt when you are in a car?: yes, usually During past 4 weeks, have you been bothered by the following: never: Falling or dizzy when standing up, Sexual problems?, Trouble eating well?, Teeth or denture problems?, Problems using the telephone? and Tiredness or fatigue? Have you fallen 2 or more times in the past year?: No Are you afraid of falling?: No Are you a smoker?: no During the past 4 weeks, how many drinks of wine, beer, or other alcoholic beverages did you have?: no alcohol at all Do you exercise for about 20 minutes 3 or more times a week?: yes, all the time Have you been given information to help with the following?: yes: Hazards in your house that might hurt you? and yes: Keeping track of your medications? How often do you have trouble taking medicines the way you have been told to take them?: I always take medicine as prescribed What is your race?: White Mini Mental State Exam (MMSE) Orientation What is the (year) (season) (date) (day) (month)?: season Where are we (state) (county) (town or city) (hospital) (floor)?: town or city Attention & Calculation (CHOOSE ONE) Ask pt to begin with 100 & count backward by 7. Stop after 5 repeats. If pt cannot ask them to spell the word WORLD backward.: 65 Spell WORLD backwards (DLROW): 5 letters Score Score: 8 Activity of Daily Living Bathing - sponge bath, tub bath or shower: receives no assistance (gets in/out by self, if usual bathing means Dressing - getting clothes from closets & drawers, including inner/outer garments & fasteners.: gets clothes & gets completely dressed without help Toileting - going to the 'toilet room' for urine/bowel elimination & cleaning self/arranging clothes: goes to toilet room, cleans self, arranges clothes without help Transfer: moves in & out of bed and chair without help (may use support object) Continence: controls urination/bowel movements completely by self Feeding: feeds self without help Total Score: 0 Information obtained from: patient Using telephone: independent Traveling: independent Shopping: independent Preparing meals: independent Housework: independent Taking medicine: independent Managing money: independent PHQ-9 Over the last 2 weeks, how often have you been bothered by any of the following problems? 1. Little interest or pleasure in doing things: not at all 2. Feeling down, depressed, or hopeless: not at all 3. Trouble falling or staying asleep, or sleeping too much: not at all 4. Feeling tired or having little energy: not at all 5. Poor appetite or overeating: not at all 6. Feeling bad about yourself - or that you are a failure or have let yourself or your family down: not at all 7. Trouble concentrating on things, such as reading the newspaper or watching television: not at all 8. Moving or speaking so slowly that other people could have noticed. Or the opposite - being so fidgety or restless that you have been moving around a lot more than usual: not at all 9. Thoughts that you would be better off or of hurting yourself in some way: not at all Total score: 0 Depression Screening Interpretation: Negative Depression Screening Done: Yes 69888 - PHQ-9 Billing: Yes Source: Developed by Drs. Williams Nagel, Abby Garcia, Osiel Ash and colleagues, with an educational yamil from [employer]. Physical Exam Vital Signs: Last Vital Signs Pulse 68 04/07/24 09:32 BP 136/86 04/07/24 09:32 Pulse Ox 98 04/07/24 09:32 Oxygen Delivery Method Room Air 04/07/24 09:32 BMI result Body Mass Index 32.3 HEENT Other: hearing screening whisper test- pass Eyes Other: vision screening- 20 20 OS OD OU Other: urinary incontinence? Neuro Other: balance Romberg- normal tandem walk test- able walk-in turned test-Able rise from sit to stand- within 2 seconds Assessment & Plan Assessment & Plan (1) Medicare annual wellness visit, subsequent: Code(s): Z00.00 - Encounter for general adult medical examination without abnormal findings Plan: As per HPI (2) DMII (diabetes mellitus, type 2): Code(s): E11.9 - Type 2 diabetes mellitus without complications Qualifiers: Diabetes mellitus retirement insulin use: without adjunct faculty for medical terminology use Diabetes mellitus complication status: with hyperglycemia Qualified Code(s): E11.65 - Type 2 diabetes mellitus with hyperglycemia Plan: Hold off on Actos and continue working strictly on dietary and lifestyle modifications. Continue metformin as is. Goal A1c is to remain below 7.0 Orders: Orders Complete Blood Count no Diff 6 Months I10 - Essential (primary) hypertension Prostate Specific Antigen Scr 6 Months E11.65 - Type 2 diabetes mellitus with hyperglycemia, Z12.5 - Encounter for screening for malignant neoplasm of prostate Microalbumin, Random (w Creat) 6 Months I10 - Essential (primary) hypertension Lipid Panel 6 Months E78.2 - Mixed hyperlipidemia Comprehensive Belva. Panel Fast 6 Months E11.65 - Type 2 diabetes mellitus with hyperglycemia Medications: Refilled atorvastatin 20 mg PO DAILY 90 tabs 0RF E78.2 - Mixed hyperlipidemia lisinopril 2.5 mg PO DAILY 90 tabs 0RF I10 - Essential (primary) hypertension metformin 500 mg PO BID 180 tabs 0RF 90 days E11.65 - Type 2 diabetes mellitus with hyperglycemia On Hold pioglitazone (Actos) Hold Comment: Doctor's Order 15 mg PO DAILY 90 days 90 tabs 0RF E11.9 - Type 2 diabetes mellitus without complications Quality Reporting (2019) Depression/Bipolar (159/160/161/177) PHQ-9: Total score: 0 Coding Level of Care Code Medicare Subsequent (G0439) Est Pt Level 3 (36496) Diagnoses Medicare annual wellness visit, subsequent Z00.00 Type 2 diabetes mellitus with hyperglycemia, without long-term current use of insulin E11.65 Diabetes mellitus retirement insulin use: without adjunct faculty for medical terminology use Diabetes mellitus complication status: with hyperglycemia
[2024-04-07 09:37] VITALS: BMI 32.3
== END 2024-04-07 10:12 | disposition home or self-care (01) ==
PROVIDERS: PCP Physician Assistant; Visit Provider Physician Assistant
DX: Z00.00 Encounter for general adult medical examination without abnormal findings (principal); E11.65 Type 2 diabetes mellitus with hyperglycemia
CPT/HCPCS: 99213; G0439

== ENCOUNTER 2024-10-02 07:18 | Outpatient (REF) | payer MEDICARE, SELFPAY ==
[2024-10-02 10:15] LABS: Hematocrit 41.9 % (42.0-52.0); Hemoglobin 14.2 g/dl (14.0-18.0); Mean Corpuscular HGB Conc 33.9 g/dl (31.0-36.0); Mean Corpuscular Hemoglobin 31.7 pg (27.0-33.0); Mean Corpuscular Volume 93.5 fL (80.0-98.0); Mean Platelet Volume 9.4 fL (9.4-12.4); Platelet Count 244 X10*3/uL (160-400); Red Blood Count 4.48 X10*6/uL (4.60-5.80); Red Cell Distribution Width 12.5 % (11.0-16.0); White Blood Count 4.6 X10*3/uL (4.8-10.8)
[2024-10-02 10:26] LABS: Alanine Aminotransferase 28 U/L (0-40); Albumin Level 3.9 g/dL (3.5-5.0); Alkaline Phosphatase 104 U/L (39-117); Anion Gap 10 (12-20); Aspartate Amino Transferase 30 U/L (5-37); Bilirubin Total 0.6 mg/dL (0.0-1.0); Blood Urea Nitrogen 18 mg/dL (9-16); Carbon Dioxide 28 mmol/L (22-29); Chloride 109 mmol/L (96-108); Cholesterol 115 mg/dL (<200); Estimated Glomerular Filt Rate > 60; Glucose Fasting 173 mg/dL (60-99); HDL Cholesterol 40 mg/dL (>40); LDL Cholesterol Calculated 65 mg/dL (<100); Potassium 4.3 mmol/L (3.3-5.1); Sodium 143 mmol/L (135-145); Triglycerides 53 mg/dL (<150)
[2024-10-02 10:27] LABS: Creatinine Urine 246.03 mg/dL; Microalbum/Creatinine Ratio Ur 12.1 ug/mg cr (<30)
[2024-10-02 10:40] LABS: Prostate Specific Antigen Scr 1.06 ng/mL (<0.05-4.0)
== END 2024-10-02 07:19 | disposition home or self-care (01) ==
LOC: HO.HMGCLDS 07:18
PROVIDERS: PCP Physician Assistant; Visit Provider Physician Assistant
DX: I10 Essential (primary) hypertension (principal); Z12.5 Encounter for screening for malignant neoplasm of prostate; E11.65 Type 2 diabetes mellitus with hyperglycemia; E78.2 Mixed hyperlipidemia
CPT/HCPCS: 36415; 80053; 80061; 82043; 82570; 84153; 85027

== ENCOUNTER 2024-10-09 09:13 | Outpatient (AMB) | payer MEDICARE, SELFPAY ==
[2024-10-09 09:40] VITALS: BP 140/84; PULSE 64; TEMP 36.2; O2SAT 97; BMI 31.8
--- NOTE | 2024-10-09 09:40 | A.OFFPC_ITS ---
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 Required: No Accompanied by: Self / Same As Patient Allergies No Known Allergies [No Known Allergies*] Allergy (Verified 10/09/24 09:49) Medication List - Last Reconciled 10/09/24 by Luke Perez PA-C atorvastatin 20 mg PO DAILY lisinopril 2.5 mg PO DAILY metformin 500 mg PO BID 90 days Tobacco use date assessed: 10/09/24 Fall risk assessment: No Falls in past year Last assessed Fall Risk: 10/09/24 Dental Screening Dental Screen Date: 10/09/24 Did you have a dental visit in the last 12 months?: Yes Did you have a dental problem in the last 6 months where you did not have access to dental care?: No Was dental information given to patient?: Patient has dentist HPI f/u DMII/ HLD HPI Details Patient is 74-year-old male here today for visit.? Patient's past medical history significant for type 2 diabetes, hyperlipidemia, osteoarthritis of the knees, hypertension, obesity.. .. Type 2 diabetes:??Patient continues on metformin 500 b.i.d. most recent A1c is 7.2.. Of note did have GI side effects with higher(doses of metformin 1000 mg) Of note we have tried pioglitazone in the past though was taken off the medication in hopes he would be able to manage with dietary modifications. He does report dietary indiscretion and weight gain since last office visit. .. Hyperlipidemia: Patient continues on statin therapy without side effect. Most recent lipid panel showing excellent control of his total cholesterol and LDL. . Osteoarthritis left knee:? Patient continues to have mild amount of pain over his left knee, has gotten cortisone injection in left knee without much relief of his pain.? Has severe varus deformity and is interested in seeing orthopedic surgeon again .. : Obesity BMI still remains above 30, have noted weight gain since last office visit. He continues to try to be more physically active an Adapta better eating habits to reduce his weight. .. Hyperparathyroidism: Has seen materials handler whom will follow. Has gotten bone density and upper abdominal scan without any evidence of nephrolithiasis. Laboratory Tests 10/04/23 03/31/24 10/02/24 08:35 07:34 07:32 RBC 4.48 L Hgb 14.2 Fasting Glucose 147 H 173 H Hgb A1c (Clinic) 7.6 H Hemoglobin A1c % 6.8 H Cholesterol 145 115 LDL Cholesterol, C alc 76 65 PSA Screen 1.06 PFSH Surgical History History of colonoscopy History of knee surgery History of cholecystectomy Family History Father No problems noted. Mother Esophageal cancer Social History Housing: House Alcohol intake: never Patient Tobacco Use Status: Never used Tobacco Tobacco use type: Cigarette e-Cigarette/Vaping Use: Never Used Second Hand Smoke Exposure: No service: No Current occupational status: retired Cognitive needs: No Hearing needs: No Vision needs: Yes Questionnaire Thrive Questionnaire Date Thrive assessed: 10/04/23 AUDIT C Alcohol Use Questionnaire (AUDIT-C) 1. How often do you have a drink containing alcohol?: Never 3. How often do you have six or more drinks on one occasion?: Never Total Score: 0 KOKO-7 AMB Questionnaire KOKO-7 Date KOKO - 7 assessed: 10/04/23 Source: Developed by Drs. Williams Nagel, Abby Garcia, Osiel Ash and colleagues, with an educational yamil from [employer]. Review of Systems Const Denies headache(s) Eyes Denies loss of vision ENT Denies vertigo, Denies dizziness, Denies headache(s) and Denies sore throat Card Denies chest pain, Denies leg edema and Denies lightheadedness Resp Denies cough, Denies hemoptysis and Denies wheezing GI Denies abdominal pain, Denies melena, Denies constipation, Denies diarrhea and Denies vomiting Denies dysuria, Denies urinary frequency and Denies urinary urgency Musc Denies arthralgias, Denies joint swelling, Denies numbness and Denies tingling Neuro Denies Abnormal speech present, Denies behavioral changes, Denies vertigo, Denies dizziness, Denies headache(s), Denies loss of vision, Denies memory loss, Denies numbness and Denies tingling Psych Denies anxiety, Denies behavioral changes, Denies depression, Denies memory loss and Denies panic attacks Ron/Lymph Denies easy bleeding and Denies easy bruising Aller/Immun Denies wheezing Physical exam (Primary Care) Vital Signs: Last Vital Signs Temp 97.1 F 10/09/24 09:40 Pulse 64 10/09/24 09:40 BP 140/84 H 10/09/24 09:40 Pulse Ox 97 10/09/24 09:40 Oxygen Delivery Method Room Air 10/09/24 09:40 BMI result Body Mass Index 31.8 BMI Assessment/Plan discussion: High BMI High, discussed plan: lifestyle, weight reduction, dietary and physical activity Tobacco/Smoking Status: Tobacco use Status Tobacco use date assessed 10/09/24 10/09/24 09:47 Patient Tobacco Use Status Never used Tobacco 10/09/24 09:47 Tobacco use type Cigarette 10/09/24 09:47 e-Cigarette/Vaping Use Never Used 10/09/24 09:47 Thrive Assessment: Date of Thrive Assessment Date Thrive assessed 10/04/23 10/09/24 09:47 Const General: healthy appearing, no acute distress, alert and awake Nutritional Appearance: well nourished Orientation/consciousness: oriented to person, oriented to place and oriented to time HENMT Ears: TM's normal bilaterally General nose exam: Normal nasal mucous membranes and turbinates present Eyes Conjunctivae: conjunctivae normal Sclerae: sclerae normal Pupils: Equal, round and reactive pupils present Neck Neck: Yes no lymphadenopathy and Yes no JVD Thyroid: Thyroid normal Carotids: no bruits Resp Effort & Inspection: normal respiratory effort and not tachypneic Auscultation: no crackles, no rales, no rhonchi and no wheezes Cardio Rate: regular rate Rhythm: regular rhythm Heart sounds: no murmurs and normal S1 and S2 GI Palpation (GI): Soft to palpation, nontender, no hepatomegaly and no splenomegaly Auscultation: normal bowel sounds Skin General skin exam: no rashes or lesions noted and dry skin Neuro General: oriented to person, oriented to place and oriented to time Cranial nerves: Yes Equal, round and reactive pupils present Speech: No Abnormal speech present Gait exam (Neuro): Normal gait present Motor exam (neuro): no tremor noted Extrem Right upper extremity: full ROM Left upper extremity: full ROM Right lower extremity: full ROM; no edema Left lower extremity: full ROM; no edema Psych Mental Status: mental status grossly normal Speech and movement: Normal speech and movement present Affect: normal affect Attitude: cooperative Thought process: Normal thought process present Results AMB Hemoglobin A1c AMB Hemoglobin A1c 7.2 % Last Edit by MARIE Parr on 10/09/24 09:50 Coding Level of Care Code Est Pt Level 4 (70467) Diagnoses Type 2 diabetes mellitus with hyperglycemia, without long-term current use of insulin E11.65 Diabetes mellitus retirement insulin use: without retirement use Diabetes mellitus complication status: with hyperglycemia Mixed hyperlipidemia E78.2 Hyperlipidemia type: mixed hyperlipidemia Essential hypertension I10 Hypertension type: essential hypertension Assessment & Plan Assessment & Plan (1) DMII (diabetes mellitus, type 2): Code(s): E11.9 - Type 2 diabetes mellitus without complications Category: Medical Qualifiers: Diabetes mellitus retirement insulin use: without retirement use Diabetes mellitus complication status: with hyperglycemia Qualified Code(s): E11.65 - Type 2 diabetes mellitus with hyperglycemia Plan: Patient's type 2 diabetes suboptimally controlled with A1c slightly above 7.0. He does admit to some dietary indiscretion. Will continue his current dose of metformin 500 b.i.d.. Did not tolerate higher doses of metformin. Will consider restarting pioglitazone if needed. He will work extensively on lifestyle and dietary modification goal A1c is to be below 7.0 (2) HLD (hyperlipidemia): Code(s): E78.5 - Hyperlipidemia, unspecified Category: Medical Qualifiers: Hyperlipidemia type: mixed hyperlipidemia Qualified Code(s): E78.2 - Mixed hyperlipidemia Plan: Patient's most recent lipid panel showing good control of his total cholesterol and LDL. Will continue him on his current statin potency. Goal LDL to be below 100. (3) HTN (hypertension): Code(s): I10 - Essential (primary) hypertension Category: Medical Qualifiers: Hypertension type: essential hypertension Qualified Code(s): I10 - Essential (primary) hypertension Plan: Today's blood pressure slightly elevated. He does not monitor his blood pressure at reports normal readings 130s systolic more regularly. Will consider increasing his lisinopril to 5-10 mg if blood pressure to remain slightly elevated. Goal blood pressures to be below 140/90 Orders: Orders AMB Hemoglobin A1c Today E11.65 - Type 2 diabetes mellitus with hyperglycemia Medications: Changed From lisinopril 2.5 mg PO DAILY 90 tabs 0RF I10 - Essential (primary) hypertension To lisinopril 2.5 mg PO DAILY 90 days 90 tabs 1RF I10 - Essential (primary) hypertension From atorvastatin 20 mg PO DAILY 90 tabs 0RF E78.2 - Mixed hyperlipidemia To atorvastatin 20 mg PO DAILY 90 days 90 tabs 1RF E78.2 - Mixed hyperlipidemia Refilled lisinopril 2.5 mg PO DAILY 90 tabs 0RF I10 - Essential (primary) hypertension metformin 500 mg PO BID 90 days 180 tabs 0RF E11.65 - Type 2 diabetes mellitus with hyperglycemia metformin 500 mg PO BID 90 days 180 tabs 1RF E11.65 - Type 2 diabetes mellitus with hyperglycemia atorvastatin 20 mg PO DAILY 90 tabs 0RF E78.2 - Mixed hyperlipidemia Patient Instructions: :Goal: A1c to be below 140/90, LDL to remain below 100 Barriers: Adherence to physical activity and healthy eating habits
--- OUTSIDE RECORDS SUMMARY | 2024-10-09 10:03 | XMS_ITS | Clinical Summary ---
Author Organization [facility] Facility Address [address] [address] Care Team Providers Care Tank House Supervisor Name Role Phone Luke Perez Primary Care Provider [phone] Allergies No known active allergies Medications atorvastatin (LIPITOR) 20 MG tablet Take 20 mg by mouth 1 (one) time each day Active lisinopril 2.5 MG tablet Take 2.5 mg by mouth 1 (one) time each day Active metFORMIN (GLUCOPHAGE) 500 MG tablet Take 500 mg by mouth in the morning and 500 mg in the evening. Take with meals. Active pioglitazone (ACTOS) 15 MG tablet Take 15 mg by mouth 1 (one) time each day Active Active Problems Problem Noted Date Diagnosed Date Hypercalcemia 05/28/2023 Hypertension 05/28/2023 Family History Medical History Relation Comments Cancer Mother esophageal Relation Status Comments Mother Social History Tobacco Use Types Packs/Day Years Used Date Smoking Tobacco: Never Smokeless Tobacco: Never Tobacco Cessation:Counseling Given: Not Answered Alcohol Use Standard Drinks/Week Comments Never 0 (1 standard drink = 0.6 oz pur e alcohol) Sex and Gender Information Value Date Recorded Sex Assigned at Not on file Legal Sex Male 12:44 PM EDT Gender Identity Not on file Sexual Orientation Not on file Last Filed Vital Signs Vital Sign Reading Time Taken Comments Blood Pressure 122/70 09/20/2023 2:05 PM EST Pulse 86 09/20/2023 2:05 PM EST Temperature - - Respiratory Rate - - Oxygen Saturation 96% 09/20/2023 2:05 PM EST Inhaled Oxygen Concentration - - Weight 98 kg (216 lb) 09/20/2023 2:05 PM EST Height - - Body Mass Index - - Plan of Treatment Health Maintenance Due Date Last Done Comments Pneumococcal Vaccine: 65+ Ye ars (1 of 2 - PCV) 1958 Colorectal Cancer Screening: Annual FOBT 2001 Colorectal Cancer Screening: Colonoscopy 2001 Colorectal Cancer Screening: Sigmoidoscopy 2001 Influenza Vaccine (#1) 2024 Hepatitis B Vaccine Aged Out No longe r eligible based on patient's age to complete this topic Insurance MEDICARE [facility] MEDICARE [facility] Care Teams Tank House Supervisor Relationship Specialty Start Date End Date Luke Perez PA [address] [place] [address], [address] [place], [place] [id number] PCP - General Physician Fx Artist 05/28/23
== END 2024-10-09 10:08 | disposition home or self-care (01) ==
PROVIDERS: PCP Physician Assistant; Visit Provider Physician Assistant
DX: E11.65 Type 2 diabetes mellitus with hyperglycemia (principal); E78.2 Mixed hyperlipidemia; I10 Essential (primary) hypertension

== ENCOUNTER → 2024-10-09 09:13 | Outpatient (BNVA) | payer MEDICARE, SELFPAY | PROVIDERS: PCP Physician Assistant; Visit Provider Physician Assistant | DX: E11.65 Type 2 diabetes mellitus with hyperglycemia (principal); E78.2 Mixed hyperlipidemia; I10 Essential (primary) hypertension | CPT/HCPCS: 83036; 99212 ==

== ENCOUNTER 2025-04-01 09:08 | Outpatient (REF) | payer MEDICARE, SELFPAY ==
--- OUTSIDE RECORDS SUMMARY | 2025-04-01 09:51 | XMS_ITS | Clinical Summary ---
Author Organization [facility] Facility Address [address] [address] Care Team Providers Care Candlemaking Laborer Name Role Phone Luke Perez Primary Care Provider [phone] Allergies No known active allergies Medications atorvastatin [...] Due Date Last Done Comments Pneumococcal Vaccine: 50+ Ye ars (1 of 2 - PCV) 1971 Colorectal Cancer Screening: Annual FOBT 2001 Colorectal Cancer Screening: Colonoscopy 2001 Colorectal Cancer Screening: Sigmoidoscopy 2001 Influenza Vaccine (#1) 2025 Hepatitis B Vaccine Aged Out No longe r eligible based on patient's age to complete this topic Insurance Medicare [facility] Medicare [facility] Care Teams Candlemaking Laborer Relationship Specialty Start Date End Date Luke Perez PA [address] [place] [address], [address] [place] [address] PCP - General Physician Plumbing Mechanic 05/28/23
[2025-04-01 11:15] LABS: Hematocrit 44.1 % (42.0-52.0); Hemoglobin 15.1 g/dl (14.0-18.0); Mean Corpuscular HGB Conc 34.2 g/dl (31.0-36.0); Mean Corpuscular Hemoglobin 32.2 pg (27.0-33.0); Mean Corpuscular Volume 94.0 fL (80.0-98.0); NRBC Abs Auto 0.000 X10*3/uL (0.0-0.012); NRBC Pct Auto 0.0 /100WBC (0.0-0.2); Platelet Count 203 X10*3/uL (160-400); Red Blood Count 4.69 X10*6/uL (4.60-5.80); White Blood Count 3.9 X10*3/uL (4.8-10.8)
[2025-04-01 11:29] LABS: Hemoglobin A1C 236.1455 umol/L; Total Hemoglobin (HGBA1C) 3959.9620 umol/L
[2025-04-01 11:52] LABS: Alanine Aminotransferase 30 U/L (0-40); Albumin Level 4.6 g/dL (3.5-5.0); Alkaline Phosphatase 109 U/L (39-117); Anion Gap 14 (12-20); Aspartate Amino Transferase 26 U/L (5-37); Blood Urea Nitrogen 21 mg/dL (9-16); Calcium 10.5 mg/dL (8.4-10.2); Carbon Dioxide 26 mmol/L (22-29); Chloride 106 mmol/L (96-108); Cholesterol 143 mg/dL (<200); Estimated Glomerular Filt Rate > 60; HDL Cholesterol 45 mg/dL (>40); Potassium 4.6 mmol/L (3.3-5.1); Sodium 141 mmol/L (135-145); Total Protein 7.2 g/dL (6.5-8.0); Triglycerides 65 mg/dL (<150)
[2025-04-01 11:55] LABS: Parathyroid Hormone Intact 69.5 pg/mL (8.7-77.1)
[2025-04-01 11:58] LABS: Anion Gap 11 (12-20); Blood Urea Nitrogen 21 mg/dL (9-16); Calcium 10.4 mg/dL (8.4-10.2); Carbon Dioxide 27 mmol/L (22-29); Chloride 106 mmol/L (96-108); Estimated Glomerular Filt Rate > 60; Potassium 4.7 mmol/L (3.3-5.1); Sodium 139 mmol/L (135-145)
== END 2025-04-01 09:09 | disposition home or self-care (01) ==
LOC: HO.HMGCLDS 09:08
PROVIDERS: PCP Physician Assistant; Referring Provider Internal Medicine Endocrinology, Diabetes & Metabolism; Visit Provider Physician Assistant
DX: E78.2 Mixed hyperlipidemia (principal); E83.52 Hypercalcemia; E11.65 Type 2 diabetes mellitus with hyperglycemia
CPT/HCPCS: 36415; 80051; 80053; 80061; 82306; 82310; 82565; 83036; 83970; 84520; 85027

== ENCOUNTER 2025-04-08 08:52 | Outpatient (AMB) | payer MEDICARE, SELFPAY ==
--- NOTE | 2025-04-08 08:56 | A.OFFPC_ITS ---
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 Required: No Accompanied by: Self / Same As Patient Allergies No Known Allergies (No Known Allergies*) Allergy (Verified 04/08/25 09:05) Medication List - Last Reconciled 04/08/25 by Luke Perez PA-C atorvastatin 20 mg PO DAILY 90 days lisinopril 2.5 mg PO DAILY 90 days metformin 500 mg PO BID 90 days Tobacco use date assessed: 04/08/25 Fall risk assessment: No Falls in past year Last assessed Fall Risk: 04/08/25 Dental Screening Dental Screen Date: 04/08/25 Did you have a dental visit in the last 12 months?: Yes Did you have a dental problem in the last 6 months where you did not have access to dental care?: No Was dental information given to patient?: Patient has dentist HPI 6 mo f/u DMII/ HTN HPI Details Patient is 74-year-old male here today for visit.? Patient's past medical history significant for type 2 diabetes, hyperlipidemia, osteoarthritis of the knees, hypertension, obesity.. .. Type 2 diabetes:??Patient continues on metformin 500 b.i.d. most recent A1c again above 7.0.. Of note did have GI side effects with higher(doses of metformin 1000 mg). Will restart pioglitazone 15 mg for better glycemic control. .. Hyperlipidemia: Patient continues on statin therapy without side effect. Most recent lipid panel showing excellent control of his total cholesterol and LDL. . Osteoarthritis left knee:? Has followed up with Orthopedics and are recommending a left knee replacement, he is due for left knee replacement in May of 2025 .. Class 1 Obesity: Has lost weight since last office visit, BMI still remains above 30, have noted weight gain since last office visit. He continues to try to be more physically active an Adapta better eating habits to reduce his weight. .. Hyperparathyroidism: Has seen homeowner association manager whom will follow. Has gotten bone density and upper abdominal scan without any evidence of nephrolithiasis. The patient has a history of hypercalcemia, with recent lab results showing calcium levels at 10.4 mg/dL, which is considered borderline high. He is under the care of a specialist in [place] and is undergoing genetic testing to further evaluate the condition. Laboratory Tests 09/27/23 10/02/24 10/09/24 08:38 07:32 09:49 WBC 4.6 L RBC 4.48 L Fasting Glucose 173 H Hgb A1c (Clinic) 7.2 H Hemoglobin A1c % LDL Cholesterol, C alc 65 Urine Microalbumin 26.0 30.0 04/01/25 09:20 WBC 3.9 L RBC 4.69 Fasting Glucose 158 H Hgb A1c (Clinic) Hemoglobin A1c % 7.6 H LDL Cholesterol, C alc 85 Urine Microalbumin PFSH Surgical History History of colonoscopy History of knee surgery History of cholecystectomy Family History Father No problems noted. Mother Esophageal cancer Social History Housing: House Alcohol intake: never Patient Tobacco Use Status: Never used Tobacco Tobacco use type: Cigarette e-Cigarette/Vaping Use: Never Used Second Hand Smoke Exposure: No service: No Current occupational status: retired Cognitive needs: No Hearing needs: No Vision needs: Yes Questionnaire PHQ-9 Over the last 2 weeks, how often have you been bothered by any of the following problems? 1. Little interest or pleasure in doing things: not at all 2. Feeling down, depressed, or hopeless: not at all 3. Trouble falling or staying asleep, or sleeping too much: not at all 4. Feeling tired or having little energy: not at all 5. Poor appetite or overeating: not at all 6. Feeling bad about yourself - or that you are a failure or have let yourself or your family down: not at all 7. Trouble concentrating on things, such as reading the newspaper or watching television: not at all 8. Moving or speaking so slowly that other people could have noticed. Or the opposite - being so fidgety or restless that you have been moving around a lot more than usual: not at all 9. Thoughts that you would be better off or of hurting yourself in some way: not at all Total score: 0 Depression Screening Interpretation: Negative Depression Screening Done: Yes 95766 - PHQ-9 Billing: Yes Source: Developed by Drs. Williams Nagel, Osiel Dhillon and colleagues, with an educational yamil from [employer] Thrive Questionnaire Date Thrive assessed: 04/08/25 I am a: Patient What is your living situation today?: I have a steady place to live Within the past 12 months, did the food you bought not last and you didn't have the money to get more?: Never true Within the past 12 months, did you worry whether your food would run out before you got money to buy more?: Never true Do you have trouble paying for medicines?: No Do you have trouble getting transportation to medical appointments?: No Do you have trouble paying your heating and electricity bill?: No Do you have trouble taking care of your child, family member or friend?: No Do you have trouble with day-to-day activities such as bathing, preparing meals, shopping, managing finances, etc.?: No Are you currently unemployed and looking for a job?: No Are you interested in more education?: No Please select the resources that you would like help with: None Currently or been in a relationship where the following occur: No concerns reported THRIVE Score: 0 AUDIT C Alcohol Use Questionnaire (AUDIT-C) 1. How often do you have a drink containing alcohol?: Never Total Score: 0 KOKO-7 AMB Questionnaire KOKO-7 Date KOKO - 7 assessed: 04/08/25 Feeling nervous, anxious, or on edge: 0 = Not at all Not being able to stop or control worryin = Not at all Worrying too much about different things: 0 = Not at all Trouble relaxin = Not at all Being so restless that it is hard to sit still: 0 = Not at all Becoming easily annoyed or irritable: 0 = Not at all Feeling afraid as if something awful might happen: 0 = Not at all Total KOKO-7 score (0-4 normal; 5-9 mild; 10-14 moderate; 15-21 severe): 0 Source: Developed by Abby Zurita Kurt Kroenke and colleagues, with an educational yamil from [employer] KOKO-7 Assessment Billing KOKO-7 Assessment Tool: KOKO-7 Assessment 26443 Review of Systems Const Denies headache(s) Eyes Denies loss of vision ENT Denies vertigo, Denies dizziness, Denies headache(s) and Denies sore throat Card Denies chest pain, Denies leg edema and Denies lightheadedness Resp Denies cough, Denies hemoptysis and Denies wheezing GI Denies abdominal pain, Denies melena, Denies constipation, Denies diarrhea and Denies vomiting Denies dysuria, Denies urinary frequency and Denies urinary urgency Musc Denies arthralgias, Denies joint swelling, Denies numbness and Denies tingling Neuro Denies Abnormal speech present, Denies behavioral changes, Denies vertigo, Denies dizziness, Denies headache(s), Denies loss of vision, Denies memory loss, Denies numbness and Denies tingling Psych Denies anxiety, Denies behavioral changes, Denies depression, Denies memory loss and Denies panic attacks Ron/Lymph Denies easy bleeding and Denies easy bruising Aller/Immun Denies wheezing Physical exam (Primary Care) Vital Signs: Last Vital Signs Pulse 82 04/08/25 08:57 BP 132/66 04/08/25 08:57 Pulse Ox 95 04/08/25 08:57 Oxygen Delivery Method Room Air 04/08/25 08:57 BMI result Body Mass Index 30.6 Tobacco/Smoking Status: Tobacco use Status Tobacco use date assessed 04/08/25 04/08/25 09:03 Patient Tobacco Use Status Never used Tobacco 04/08/25 09:03 Tobacco use type Cigarette 04/08/25 09:03 e-Cigarette/Vaping Use Never Used 04/08/25 09:03 PHQ-9: PHQ-9 Score PHQ-9: Total score 0 04/08/25 09:03 Depression Screening Interpretation: Negative Thrive Assessment: Date of Thrive Assessment Date Thrive assessed 04/08/25 04/08/25 09:03 Currently or been in a relationship where the following occur: No concerns reported Const General: healthy appearing, no acute distress, alert and awake Nutritional Appearance: well nourished Orientation/consciousness: oriented to person, oriented to place and oriented to time HENMT Ears: TM's normal bilaterally General nose exam: Normal nasal mucous membranes and turbinates present Eyes Conjunctivae: conjunctivae normal Sclerae: sclerae normal Pupils: Equal, round and reactive pupils present Neck Neck: Yes no lymphadenopathy and Yes no JVD Thyroid: Thyroid normal Carotids: no bruits Resp Effort & Inspection: normal respiratory effort and not tachypneic Auscultation: no crackles, no rales, no rhonchi and no wheezes Cardio Rate: regular rate Rhythm: regular rhythm Heart sounds: no murmurs and normal S1 and S2 GI Palpation (GI): Soft to palpation, nontender, no hepatomegaly and no splenomegaly Auscultation: normal bowel sounds Skin General skin exam: no rashes or lesions noted and dry skin Neuro General: oriented to person, oriented to place and oriented to time Cranial nerves: Yes Equal, round and reactive pupils present Speech: No Abnormal speech present Gait exam (Neuro): Normal gait present Motor exam (neuro): no tremor noted Extrem Right upper extremity: full ROM Left upper extremity: full ROM Right lower extremity: full ROM; no edema Left lower extremity: full ROM; no edema Psych Mental Status: mental status grossly normal Speech and movement: Normal speech and movement present Affect: normal affect Attitude: cooperative Thought process: Normal thought process present Coding Level of Care Code Est Pt Level 4 (18030) Diagnoses Type 2 diabetes mellitus with hyperglycemia, without long-term current use of insulin E11.65 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 insulin use: without marine oil terminal superintendent use Diabetes mellitus complication status: with hyperglycemia Mixed hyperlipidemia E78.2 Hyperlipidemia type: mixed hyperlipidemia Essential hypertension I10 Hypertension type: essential hypertension Hyperparathyroidism E21.3 Class 1 obesity E66.811 Additional Codes KOKO-7 Assessment Billing - KOKO-7 Assessment Tool: KOKO-7 Assessment 40177 ([id number]) PHQ-9 - 45718 - PHQ-9 Billing: Yes ([id number]) Assessment & Plan Assessment & Plan (1) DMII (diabetes mellitus, type 2): Code(s): E11.9 - Type 2 diabetes mellitus without complications Category: Medical Qualifiers: Diabetes mellitus fci insulin use: without fci use Diabetes mellitus complication status: with hyperglycemia Qualified Code(s): E11.65 - Type 2 diabetes mellitus with hyperglycemia Plan: Patient's type 2 diabetes suboptimally controlled with A1c slightly above 7.0. He does admit to some dietary indiscretion. Will continue his current dose of metformin 500 b.i.d.. Did not tolerate higher doses of metformin. Will restart pioglitazone 15 mg. He will work extensively on lifestyle and dietary modification goal A1c is to be below 7.0 (2) HLD (hyperlipidemia): Code(s): E78.5 - Hyperlipidemia, unspecified Category: Medical Qualifiers: Hyperlipidemia type: mixed hyperlipidemia Qualified Code(s): E78.2 - Mixed hyperlipidemia Plan: Patient's most recent lipid panel showing good control of his total cholesterol and LDL. Will continue him on his current statin potency. Goal LDL to be below 100. (3) HTN (hypertension): Code(s): I10 - Essential (primary) hypertension Category: Medical Qualifiers: Hypertension type: essential hypertension Qualified Code(s): I10 - Essential (primary) hypertension Plan: Blood pressure today in office acceptable. He does not monitor his blood pressure at reports normal readings 130s systolic more regularly.. Goal blood pressures to be below 140/90 (4) Hyperparathyroidism: Code(s): E21.3 - Hyperparathyroidism, unspecified Category: Medical Plan: The patient is under the care of a specialist for hypercalcemia, with current calcium levels at 10.4 mg/dL. Genetic testing is being conducted to further evaluate the condition. (5) Class 1 obesity: Code(s): E66.811 - Obesity, class 1 Category: Medical Plan: Patient does understand his BMI is over 30 will continue working on better eating habits and being more physically active to reduce his weight Orders: Orders Comprehensive [place]. Panel Fast Today E11.65 - Type 2 diabetes mellitus with hyperglycemia Prostate Specific Antigen Scr Today E11.65 - Type 2 diabetes mellitus with hyperglycemia, Z12.5 - Encounter for screening for malignant neoplasm of prostate Lipid Panel Today E11.65 - Type 2 diabetes mellitus with hyperglycemia Hemoglobin A1c Today E11.65 - Type 2 diabetes mellitus with hyperglycemia Complete Blood Count no Diff Today E11.65 - Type 2 diabetes mellitus with hyperglycemia Medications: New pioglitazone 15 mg PO DAILY 90 tabs 1RF 90 days E11.65 - Type 2 diabetes mellitus with hyperglycemia Refilled metformin 500 mg PO BID 180 tabs 2RF 90 days E11.65 - Type 2 diabetes mellitus with hyperglycemia lisinopril 2.5 mg PO DAILY 90 tabs 2RF 90 days I10 - Essential (primary) hypertension atorvastatin 20 mg PO DAILY 90 tabs 2RF 90 days E78.2 - Mixed hyperlipidemia Patient Instructions: Goal: A1c to be below 7.0, LDL to remain below 100 and blood pressures remain below 140/90 Barriers: Adherence to physical activity and healthy eating habits
[2025-04-08 08:57] VITALS: BP 132/66; PULSE 82; O2SAT 95; BMI 30.6
--- OUTSIDE RECORDS SUMMARY | 2025-04-08 09:21 | XMS_ITS | Clinical Summary ---
Author Organization [facility] Facility Address [address] [address] Care Team Providers Care Damage Prevention Coordinator Name Role Phone Luke Perez Primary Care Provider [phone] Allergies No known active allergies Medications atorvastatin [...] age to complete this topic Insurance Medicare [facility] Medicare [facility] Care Teams Damage Prevention Coordinator Relationship Specialty Start Date End Date Luke Perez PA [address] [place] [address], [address] [place] [address] PCP - General Physician Candy Attendant 05/28/23
== END 2025-04-08 09:26 | disposition home or self-care (01) ==
LOC: HO.HMCH 08:53
PROVIDERS: PCP Physician Assistant; Visit Provider Physician Assistant
DX: E11.65 Type 2 diabetes mellitus with hyperglycemia (principal); E78.2 Mixed hyperlipidemia; E66.811 Obesity, class 1; Z68.30 Body mass index [BMI] 30.0-30.9, adult; I10 Essential (primary) hypertension; E21.3 Hyperparathyroidism, unspecified

== ENCOUNTER → 2025-04-08 08:52 | Outpatient (BNVA) | payer MEDICARE, SELFPAY | PROVIDERS: PCP Physician Assistant; Visit Provider Physician Assistant | DX: E11.65 Type 2 diabetes mellitus with hyperglycemia (principal); E78.2 Mixed hyperlipidemia; E21.3 Hyperparathyroidism, unspecified; I10 Essential (primary) hypertension; E66.811 Obesity, class 1; Z68.30 Body mass index [BMI] 30.0-30.9, adult; Z71.3 Dietary counseling and surveillance | CPT/HCPCS: 96127; 99212 ==